=== PATIENT | male | born 1990 | race Caucasian/White ===

== ENCOUNTER 2018-07-01 22:21 | Emergency (ER) | payer SELFPAY | END 2018-07-01 23:56 | disposition home or self-care (01) | LOC: ERS 22:21 | DX: B34.9 Viral infection, unspecified (principal); F31.9 Bipolar disorder, unspecified; F25.9 Schizoaffective disorder, unspecified | CPT/HCPCS: 87081; 87430; 87804; 99283 ==

== ENCOUNTER 2020-01-29 11:45 | Emergency (ER) | payer SELFPAY ==
[2020-01-29] MEDS ORDERED: Fluorescein Opthalmic Strip ONE (12:50)
[2020-01-29] MEDS ORDERED: Proparacaine 0.5% Opth 15 ML BOT ONE (12:50)
== END 2020-01-29 13:55 | disposition home or self-care (01) ==
LOC: ERS 11:45
DX: T15.91XA Foreign body on external eye, part unspecified, right eye, initial encounter (principal); F31.9 Bipolar disorder, unspecified; F20.9 Schizophrenia, unspecified
CPT/HCPCS: 99283

== ENCOUNTER 2022-07-13 22:14 | Emergency (ER) | payer SELFPAY ==
[2022-07-13] MEDS ORDERED: Lidocaine Viscous Sol 2% 15 ml UD Cup ONE (22:40)
[2022-07-13] MEDS ORDERED: Mag-Al 1200 mg/1200 mg/30 ML UDCUP ONE (22:40)
[2022-07-13 23:14] LABS: #Eosinphils 0.2 thou/uL (0.0-0.7); #Lymphocytes 1.9 thou/uL (1.20-3.40); #Monocytes 0.7 thou/uL (0.11-0.59); #Neutrophils 7.5 thou/uL (1.40-6.50); %Basophils 0.2 % (0.0-1.0); %Eosinophils 2.2 % (0.0-10.0); %Lymphocytes 18.8 % (21.0-51.0); %Monocytes 6.3 % (0.0-10.0); %Neutrophils 72.6 % (42.0-75.0); Hemoglobin 13.3 g/dL (14.0-18.0); Mean Corpuscular HGB CONC 33.5 g/dL (32.0-36.0); Mean Corpuscular Hemoglobin 31.6 pg (27.0-31.0); Mean Corpuscular Volume 94.5 fL (78.0-98.0); Mean Platelet Volume 8.1 fL (7.4-10.4); Platelet Count 251 thou/uL (130-400); RBC Distribution Width 11.4 % (11.5-14.5); Red Blood Cell (RBC) Count 4.22 mill/uL (4.70-6.10); White Blood Cell (WBC) Count 10.3 thou/uL (4.8-10.8)
[2022-07-13 23:36] LABS: ALT (SGPT) 11 U/L (8-55); AST (SGOT) 12 U/L (5-34); Albumin 4.4 g/dL (3.5-5.0); Alkaline Phosphatase 50 U/L (40-110); Anion Gap 12 mmol/L (10-20); BUN (Urea Nitrogen) 17 mg/dL (8.9-20.6); Bilirubin, Total 0.7 mg/dL (0.2-1.2); Calc. Creatinine Clearance 0 mL/min (70-130); Calcium 10.2 mg/dL (7.8-10.44); Carbon Dioxide 28 mmol/L (22-29); Chloride 103 mmol/L (98-107); Estimated GFR 86; Globulin 2.8 g/dL (2.4-3.5); Glucose 102 mg/dL (70-105); Lipase 20 U/L (8-78); Potassium 3.9 mmol/L (3.5-5.1); Protein, Total 7.2 g/dL (6.0-8.3); Sodium 139 mmol/L (136-145)
== END 2022-07-14 00:45 | disposition home or self-care (01) ==
LOC: ERS 22:14
DX: R10.13 Epigastric pain (principal)
CPT/HCPCS: 36415; 80053; 83690; 85025; 99284